=== PATIENT | female | born 1995 | race Caucasian/White ===

== ENCOUNTER 2016-09-22 02:10 | Emergency (ER) | payer SELFPAY ==
[~2016-09-22] VITALS: Ht 160 cm; Wt 63.5 kg
--- NOTE | 2016-09-22 02:10 | NUR ---
Patient was BIBA and taken to bed 06 via gurney per EMS.
[2016-09-22 02:22] VITALS: BP 149/76
[2016-09-22 02:25] VITALS: BP 149/76
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
--- NOTE | 2016-09-22 02:40 | NUR ---
PT SIGNED AMA, BROTHER AT BEDSIDE AND TOOK HER HOME.
== END 2016-09-22 02:40 | disposition left against medical advice (07) ==
LOC: MED 02:10
DX: R41.82 Altered mental status, unspecified (principal); F10.129 Alcohol abuse with intoxication, unspecified
CPT/HCPCS: 99283